=== PATIENT | female | born 1940 | race Caucasian/White ===

== ENCOUNTER → 2016-08-10 | Outpatient (CLI) | payer OTHER ==
[~2016-08-10] MED LIST: CALCIUM + D600 M1 PO; DMD20 PO; FSMUNK; NXM/40 PO
[2016-08-10 12:23] LABS: BASO % 0.5 %; BASO ABS # 0.03 K/uL (0-0.2); COMPLETE YES; EOS % 1.6 %; IG% 0.3 %; LYMPH % 22.8 %; LYMPH ABS # 1.39 K/uL (1.2-3.4); MEAN CELL VOLUME 109.3 fL (80-100); MEAN CORPUSCULAR HEMOGLOBIN 37.6 pg (25-34); MEAN CORPUSCULAR HGB CONC 34.4 g/dl (32-36); MEAN PLATELET VOLUME 10.8 fL (7.4-10.4); MONO % 8.5 %; NEUT % 66.3 %; PLATELET COUNT 179 K/uL (130-400); RED BLOOD COUNT 3.75 M/uL (4.2-5.4); WHITE BLOOD COUNT 6.09 K/uL (4.8-10.8)
[2016-08-10 12:50] LABS: ALT/SGPT 16 U/L (12-78); BLOOD UREA NITROGEN 15 mg/dl (7-18); BUN/CREATININE RATIO 13.7 (10-20); CALCIUM 9.1 mg/dl (8.5-10.1); CARBON DIOXIDE 26 mmol/L (21-32); CHLORIDE 104 mmol/L (98-107); GLUCOSE 103 mg/dl (70-99); POTASSIUM 4.3 mmol/L (3.5-5.1); SODIUM 140 mmol/L (136-145)
[2016-08-10 12:52] LABS: ALB/GLOB RATIO 1.1 (0.9-2); ALKALINE PHOSPHATASE 77 U/L (45-117); AST/SGOT 21 U/L (15-37)
[2016-08-10 12:54] LABS: ESTIMATED AVERAGE GLUCOSE 103 mg/dl; HA1C FLAG Normal (Normal)
--- NOTE | 2016-08-16 13:37 | CODING QUERY MEDICAL NECESSITY ---
SUPPORTING DIAGNOSIS NEEDED A supporting diagnosis is required for the test/procedure performed on this patient in order for us to be reimbursed by the patient's insurance. Please provide a supporting diagnosis for the following test/procedure listed below next to the test name along with your signature. *If there is no additional diagnosis for this patient that would support the following test/procedure please document that below next to the test/procedure. Test(s)/Procedure(s) that require a supporting diagnosis: * VITAMIN B-12 LEVEL DIAGNOSIS: * DOS: 08/10/16 Provider Signature: Date: Thank you Neida Lucero Health Information Management Once completed, please kindly fax back to [phone] For questions please call [phone]
== END | disposition home or self-care (01) ==
LOC: C.LABBFT 08:48
PROVIDERS: ATTEND Internal Medicine
DX: D64.9 Anemia, unspecified (principal); R73.01 Impaired fasting glucose

== ENCOUNTER → 2017-06-09 | Outpatient (CLI) | payer OTHER ==
[2017-06-09 17:34] LABS: HEMATOCRIT 39.9 % (37-47); MEAN CELL VOLUME 109.6 fL (80-100); MEAN CORPUSCULAR HEMOGLOBIN 36.8 pg (25-34); MEAN CORPUSCULAR HGB CONC 33.6 g/dl (32-36); MEAN PLATELET VOLUME 10.8 fL (7.4-10.4); PLATELET COUNT 162 K/uL (130-400); RED BLOOD COUNT 3.64 M/uL (4.2-5.4); WHITE BLOOD COUNT 6.71 K/uL (4.8-10.8)
[2017-06-09 17:39] LABS: ALT/SGPT 11 U/L (12-78); AST/SGOT 28 U/L (15-37); BLOOD UREA NITROGEN 14 mg/dl (7-18); BUN/CREATININE RATIO 13.3 (10-20); CALCIUM 8.7 mg/dl (8.5-10.1); CARBON DIOXIDE 25 mmol/L (21-32); CHLORIDE 101 mmol/L (98-107); CHOLESTEROL 204 mg/dl (0-200); CREATININE 1.05 mg/dl (0.60-1.20); GLUCOSE 104 mg/dl (70-99); SODIUM 135 mmol/L (136-145); TRIGLYCERIDES 85 mg/dl (0-150); VERY LOW DENSITY LIPOPROT CALC 17 mg/dl
[2017-06-09 17:41] LABS: ALB/GLOB RATIO 0.9 (0.9-2); ALKALINE PHOSPHATASE 87 U/L (45-117); CHOLESTEROL/HDL RATIO 1.9; HDL CHOLESTEROL 109 mg/dl; LDL CHOLESTEROL CALCULATED 78 mg/dl
[2017-06-10 06:23] LABS: ESTIMATED AVERAGE GLUCOSE 100 mg/dl; HA1C FLAG Normal (Normal)
== END | disposition home or self-care (01) ==
LOC: C.LABBFT 11:30
PROVIDERS: ATTEND Internal Medicine
DX: Z00.00 Encounter for general adult medical examination without abnormal findings (principal); R73.01 Impaired fasting glucose; E78.00 Pure hypercholesterolemia, unspecified

== ENCOUNTER → 2017-08-18 | Outpatient (CLI) | payer OTHER | END | disposition home or self-care (01) | LOC: C.PATHSPEC 17:06 | PROVIDERS: ATTEND Physician Assistant | DX: L57.0 Actinic keratosis (principal); B07.9 Viral wart, unspecified ==

== ENCOUNTER → 2017-10-20 | Outpatient (CLI) | payer OTHER | END | disposition home or self-care (01) | LOC: C.LABSPEC 16:41 | PROVIDERS: ATTEND Physician Assistant | DX: J34.89 Other specified disorders of nose and nasal sinuses (principal) ==

== ENCOUNTER 2019-01-16 08:39 | Inpatient (IN) ==
--- NOTE | 2019-01-16 09:04 | XRay Report ---
XR chest 1V portable CLINICAL HISTORY: Atypical chest pain COMPARISON STUDY: No previous studies for comparison. FINDINGS: The heart is borderline enlarged. There is a retrocardiac opacity possibly representing a h iatal hernia. There is no lobar consolidation. There is mild blunting of the left lateral costophreni c angle. There is subtle increased density within the left midlung zone. It is unclear whether this i s parenchymal or pleural. There is no failure.[ IMPRESSION: 1. Blunting of the left lateral costophrenic angle, possibly secondary to a small effusion 2. Increased density within the lateral aspect of the left midlung zone. It is unclear whether this i s parenchymal or pleural 3. Retrocardiac opacity possibly representing a hiatal hernia Electronically signed by: Flavio Stark M.D. 01/16/2019 9:03 AM
[2019-01-16] MEDS ORDERED: FAMOTIDINE 20MG/5ML IV PUSH IV STA (09:22)
[2019-01-16 09:36] LABS: Basophils # (auto) 0.03 K/uL (0-0.2); Basophils % (auto) 0.4 %; Eosinophils # (auto) 0.05 K/uL (0-0.5); Eosinophils % (auto) 0.7 %; Hematocrit (blood only) 25.5 % (37-47); Hemoglobin 7.7 g/dL (12.0-16.0); Immature Granulocytes # (auto) 0.01 K/uL (0.00-0.02); Immature Granulocytes % (auto) 0.1 %; Lymphocytes # (auto) 0.83 K/uL (1.2-3.4); Lymphocytes % (auto) 11.4 %; Mean Corpuscular Hgb Conc 30.2 g/dL (32-36); Mean Corpuscular Volume 94.8 fL (80-100); Mean Platelet Volume 10.1 fL (7.4-10.4); Monocytes # (auto) 0.73 K/uL (0.11-0.59); Neutrophils # (auto) 5.62 K/uL (1.4-6.5); Neutrophils % (auto) 77.4 %; Platelet Count 194 K/uL (130-400); RDW Coefficient of Variation 15.8 % (11.5-14.5); RDW Standard Deviation 54.8 fL (36.4-46.3); Red Blood Count 2.69 M/uL (4.2-5.4); White Blood Count 7.27 K/uL (4.8-10.8)
[2019-01-16 09:45] LABS: Prothrombin Time 10.3 Seconds (9.0-12.0)
[2019-01-16 09:54] LABS: Alanine Aminotransferase < 6 U/L (12-78); Albumin Level 3.5 gm/dl (3.4-5.0); Aspartate Aminotransferase 16 U/L (15-37); BUN Creatinine Ratio 13.7 (10-20); Bilirubin Direct 0.1 mg/dl (0-0.2); Blood Urea Nitrogen 22 mg/dl (7-18); Carbon Dioxide 23 mmol/L (21-32); Chloride 106 mmol/L (98-107); Est GFR (African American) 35.4; Est GFR (Non-African American) 30.5; Glucose 110 mg/dl (70-99); Magnesium 2.1 mg/dl (1.8-2.4); Sodium 137 mmol/L (136-145)
[2019-01-16 10:03] LABS: Albumin Globulin Ratio 0.9 (0.9-2); Alkaline Phosphatase 123 U/L (45-117); Bilirubin,Total 0.6 mg/dl (0.2-1); NT Pro B Type Natriuretic Pept 922 pg/ml (0-1800); Phosphorus 3.1 mg/dl (2.5-4.9); Total Protein 7.5 gm/dl (6.4-8.2); Troponin I < 0.015 ng/ml (0-0.045)
[2019-01-16] MEDS ORDERED: OPTIRAY 320 125ml IV PRN (10:14)
--- NOTE | 2019-01-16 10:22 | CT Scan Report ---
CT angio chest PE protocol CT DOSE: 344.96 mGy.cm HISTORY: Chest pain PE TECHNIQUE: Multiaxial CT images of the chest were performed following the intravenous administration of contrast to evaluate the pulmonary arteries. Maximal intensity projection images were also obtaine d. A dose lowering technique was utilized adhering to the principles of ALARA. COMPARISON STUDY: None. FINDINGS: Minimal atherosclerotic change thoracic aorta. Large fixed hiatal hernia. Moderate debris w ithin the mid to distal esophagus. Small left pleural effusion. Minimal dependent basilar atelectasis . The pulmonary vasculature and enhances appropriately. There are no significant filling defects. IMPRESSION: 1. No evidence of pulmonary embolus. 2. Large fixed hiatal hernia. 3. Small left pleural effusion. 4. Moderate debris within the mid to distal esophagus. The above report was generated using voice recognition software. It may contain grammatical, syntax or spelling errors. Electronically signed by: Tristen Veloz M.D. 01/16/2019 10:21 AM
--- NOTE | 2019-01-16 10:26 | CT Scan Report ---
CT angio neck with con CLINICAL HISTORY: Severe neck and chest pain. COMPARISON STUDY: No previous studies for comparison. TECHNIQUE: CT angiography was performed from the aortic arch to the skull base. MIP imaging was perfo rmed. The patient was scanned in a dynamic helical fashion during intravenous administration of 120 c c of Optiray 320. A dose lowering technique was utilized adhering to the principles of ALARA. CT DOSE: Technique: CT angiogram of the carotid and vertebral arteries was obtained using intravenous contrast and 3-D reconstruction. NASCET criteria was utilized. Findings: The visualized portions lung apices reveal pulmonary emphysema. The right carotid revealed no evidence of aneurysm and no evidence of dissection. There is no evidenc e of hemodynamic significant stenosis.. There is calcific atheromatous plaque at the origin of the ri ght internal carotid artery. This results in a 35% diameter narrowing. The left carotid revealed no evidence of hemodynamic significant stenosis. There is no evidence of an eurysm. There is no evidence of dissection. There is no evidence of hemodynamically significant vertebral stenosis. There is no evidence of verte bral dissection. There are moderate multilevel degenerative changes within the cervical spine. IMPRESSION: 1. Atheromatous changes at the origin of the right internal carotid artery, but no evidence of hemody namic significant carotid stenosis. No evidence of left internal carotid artery stenosis. 2. No evidence of vertebral artery stenosis or dissection 3. Moderate multilevel degenerative changes within the cervical spine. Electronically signed by: Flavio Stark M.D. 01/16/2019 10:24 AM
[2019-01-16 10:32] LABS: RBC Morphology Unremarkable
[2019-01-16 11:41] LABS: Appearance Urine Clear (Clear); Bilirubin Urine Negative (Negative); Blood Urine Negative (Negative); Color Urine Yellow; Glucose Urine UA Negative (Negative); Ketones Urine Negative (Negative); Leukocyte Esterase Urine Negative (Negative); Nitrite Urine Negative (Negative); Protein Urine Negative (Negative); Specific Gravity Urine 1.022 (1.000-1.030); Urobilinogen Urine Negative (Negative); pH Urine 6.5 (4.5-7.5)
--- NOTE | 2019-01-16 14:27 | History & Physical Report ---
Date of Service January 16, 2019 Assessment & Plan (1) Anemia: Normochromic/normocytic anemia. Stool is brown. Hemoccult +. Suspect gastric/stomach irritation from Aleve use + EtOH. Patient does not want to proceed with further workup and refuses to have [place] or EGD performed at this time. She is hemodynamically stable. No symptoms of anemia -Continue to monitor CBC. Transfuse if active bleeding, Hg < 7 or symptoms of anemia develop -Will STOP Aleve and instruct patient to avoid all NSAIDS -Protonix 40mg po BID -Sucralfate TID Present on Admission?: Yes (2) Neck pain: Suspect cervicalgia from arthritis vs musculoskeletal pain from PD. Patient was seen by Ortho and PT/OT was recommended -PT/OT evaluation -Strongly encourage continued exercise for strengthening of neck muscles -Tylenol 1gm PO TID -Voltaren gel PRN -Would avoid further use of NSAIDS, would try to avoid narcotics due to age Present on Admission?: Yes (3) Parkinson disease: Chronic. Symptoms well controlled -Patient to continue Carbidoba/Levodopa at home dose History of Present Illness Chief Complaint: pain in neck Primary Care Provider: Marquis Bullock MD Phoebe Bernal is a pleasant 78yo C female with history of arthritis, early PD on Carbidopa/Levodopa presenting with neck pain. She states that her symptoms began approximately 4 months ago and have been slowly progressing since. She describes pain in the back of her neck which radiates to the front of her head and bandlike across her chest and into her back which occurs only with looking down. Pain is 8/10 in severity. Resolves with rest. She denies numbness/tingling/weakness or loss of function in her hands. Denies dizziness/syncope/falls/visual changes. She was evaluated by She states her head also "gets stuck" in the downward position sometimes due to pain. Pain may also come depending on her sleeping position. Patient reports seeing an Ortho/Spine surgeon last week and had MRI performed but has not yet received the results of that study. She was referred to physical therapy. She is to followup with Ortho on 02/08/19 Patient presents today at the behest of her sister who is concerned about her symptoms. ER workup reveals H/H of 7.7 and 25.5 which is down from 13.1 and 39.1, respectively in August 2018. She states that she has been taking Aleve fairly regularly over the last 4 months. She was using 1 tablet daily initially but has recently been taking it BID. She has improvement in pain with Aleve. She denies CP/SOB/lightheadedness or dizziness. She denies melena/hematochezia/hematemesis/CGE. She has some mild epigastric tenderness. Stool + for FOBT in the ER. No prior EGD/[place]. Patient does not wish to pursue additional workup. ER Course: Pepcid Allergies Allergy/AdvReac Type Severity Reaction Status Date / Time No Known Allergies Allergy Mild Unverified 01/16/19 09:16 Home Medications Home Medications Medication Instructions Recorded Confirmed Type carbidopa-levodopa 1 tab PO UD 01/16/19 01/16/19 History naproxen sodium [Aleve] 220 mg PO Q12H PRN 01/16/19 01/16/19 History Past Med/Surg History Medical History Broken clavicle (Resolved) Arthritis Parkinson disease Surgical History History of cholecystectomy Family History Other Coronary heart disease Social History Preferred Language: Finnish Communication Ability: Effective Tie Puller Required: No Beliefs That Will Affect Care: None Current Living Situation: Alone Other Information That Helps Us Care for You: No Feels Safe at Home: Yes Safety Concerns: Feels Safe At This Time Smoking Status: Current every day smoker Tobacco Type: cigarettes Do You Dip or Chew Tobacco: No Second Hand Exposure: No Tobacco Cessation Education Requested by Patient: No Hx Alcohol Use: Yes Alcohol type: wine Hx Substance Use: No Review of Systems Review of Systems: All systems reviewed & are unremarkable except as noted in HPI & below Physical Exam Physical Exam: General: patient resting comfortably, NAD, non-toxic in appearance, AA&O x 4 Skin: warm, dry, intact, no rashes or lesions HEENT: NC/AT, PERRL, EOMI, anicteric sclera, conjunctiva without injection, external ear normal to inspection and nontender, nares patent, moist mucus membranes, dentures in place, no oropharyngeal lesions, neck supple, trachea midline, no LAD, no thyromegaly, no JVD Heart: +S1/S2, regular, no m/r/g Lungs: equal air entry bilaterally, no rales/rhonchi/wheezes Abd: +BS, soft, ND, mild epigastric discomfort, no masses/organomegaly/ascites Ext: warm, 2+ pulses in UE/LE bilaterally, no clubbing/cyanosis or edema Neuro: nonfocal, patient AA&O x 4, speech intact, no facial droop, moving all extremities on command with equal strength 5/5 Results & Data Vital Signs (Past 12 Hours) Vital Signs Temp Pulse Pulse Resp BP BP Pulse Ox 01/16/19 13:09 68 16 202/76 H 97 01/16/19 10:40 71 16 174/89 H 98 01/16/19 08:55 100 01/16/19 08:43 36.4 C L 78 18 173/76 H 100 Laboratory Results Lab Results 01/16/19 01/16/19 01/16/19 Range/Units 09:20 09:20 09:20 WBC 7.27 (4.8-10.8) K/uL RBC 2.69 L (4.2-5.4) M/uL Hgb 7.7 L (12.0-16.0) g/dL Hct 25.5 L (37-47) % MCV 94.8 (80-100) fL MCH 28.6 (25-34) pg MCHC 30.2 L (32-36) g/dL RDW Std Deviation 54.8 H (36.4-46.3) fL RDW Coeff of Sancho 15.8 H (11.5-14.5) % Plt Count 194 (130-400) K/uL MPV 10.1 (7.4-10.4) fL Immature Gran % (Auto) 0.1 % Neut % (Auto) 77.4 % Lymph % (Auto) 11.4 % [place] % (Auto) 10.0 % Eos % (Auto) 0.7 % Baso % (Auto) 0.4 % Immature Gran # (Auto) 0.01 (0.00-0.02) K/uL Neut # (Auto) 5.62 (1.4-6.5) K/uL Lymph # (Auto) 0.83 L (1.2-3.4) K/uL [place] # (Auto) 0.73 H (0.11-0.59) K/uL Eos # (Auto) 0.05 (0-0.5) K/uL Baso # (Auto) 0.03 (0-0.2) K/uL RBC Morphology Unremarkable PT 10.3 (9.0-12.0) Seconds INR 1.0 (0.9-1.1) Sodium 137 (136-145) mmol/L Potassium 4.0 (3.5-5.1) mmol/L Chloride 106 (98-107) mmol/L Carbon Dioxide 23 (21-32) mmol/L Anion Gap 8.0 (3-11) BUN 22 H (7-18) mg/dl Creatinine 1.60 H (0.6-1.2) mg/dl Est Cr Clr Drug Dosing Not Reportable Est GFR ( Amer) 35.4 Est GFR (Non-Af Amer) 30.5 BUN/Creatinine Ratio 13.7 (10-20) Glucose 110 H (70-99) mg/dl Calcium 9.0 (8.5-10.1) mg/dl Phosphorus 3.1 (2.5-4.9) mg/dl Magnesium 2.1 (1.8-2.4) mg/dl Total Bilirubin 0.6 (0.2-1) mg/dl Direct Bilirubin 0.1 (0-0.2) mg/dl AST 16 (15-37) U/L ALT < 6 L (12-78) U/L Alkaline Phosphatase 123 H (45-117) U/L Troponin I < 0.015 (0-0.045) ng/ml NT-Pro-B Natriuret Pep 922 (0-1800) pg/ml Total Protein 7.5 (6.4-8.2) gm/dl Albumin 3.5 (3.4-5.0) gm/dl Globulin 4.0 (2.5-4.0) gm/dl Albumin/Globulin Ratio 0.9 (0.9-2) Lipase 78 (73-393) U/L TSH 1.570 (0.300-4.500) uIu/ml Urine Color Urine Appearance (Clear) Urine pH (4.5-7.5) Ur Specific [place] (1.000-1.030) Urine Protein (Negative) Urine Glucose (UA) (Negative) Urine Ketones (Negative) Urine Blood (Negative) Urine Nitrite (Negative) Urine Bilirubin (Negative) Urine Urobilinogen (Negative) Ur Leukocyte Esterase (Negative) 01/16/19 Range/Units 11:25 WBC (4.8-10.8) K/uL RBC (4.2-5.4) M/uL Hgb (12.0-16.0) g/dL Hct (37-47) % MCV (80-100) fL MCH (25-34) pg MCHC (32-36) g/dL RDW Std Deviation (36.4-46.3) fL RDW Coeff of Sancho (11.5-14.5) % Plt Count (130-400) K/uL MPV (7.4-10.4) fL Immature Gran % (Auto) % Neut % (Auto) % Lymph % (Auto) % [place] % (Auto) % Eos % (Auto) % Baso % (Auto) % Immature Gran # (Auto) (0.00-0.02) K/uL Neut # (Auto) (1.4-6.5) K/uL Lymph # (Auto) (1.2-3.4) K/uL [place] # (Auto) (0.11-0.59) K/uL Eos # (Auto) (0-0.5) K/uL Baso # (Auto) (0-0.2) K/uL RBC Morphology PT (9.0-12.0) Seconds INR (0.9-1.1) Sodium (136-145) mmol/L Potassium (3.5-5.1) mmol/L Chloride (98-107) mmol/L Carbon Dioxide (21-32) mmol/L Anion Gap (3-11) BUN (7-18) mg/dl Creatinine (0.6-1.2) mg/dl Est Cr Clr Drug Dosing Est GFR ( Amer) Est GFR (Non-Af Amer) BUN/Creatinine Ratio (10-20) Glucose (70-99) mg/dl Calcium (8.5-10.1) mg/dl Phosphorus (2.5-4.9) mg/dl Magnesium (1.8-2.4) mg/dl Total Bilirubin (0.2-1) mg/dl Direct Bilirubin (0-0.2) mg/dl AST (15-37) U/L ALT (12-78) U/L Alkaline Phosphatase (45-117) U/L Troponin I (0-0.045) ng/ml NT-Pro-B Natriuret Pep (0-1800) pg/ml Total Protein (6.4-8.2) gm/dl Albumin (3.4-5.0) gm/dl Globulin (2.5-4.0) gm/dl Albumin/Globulin Ratio (0.9-2) Lipase (73-393) U/L TSH (0.300-4.500) uIu/ml Urine Color Yellow Urine Appearance Clear (Clear) Urine pH 6.5 (4.5-7.5) Ur Specific [place] 1.022 (1.000-1.030) Urine Protein Negative (Negative) Urine Glucose (UA) Negative (Negative) Urine Ketones Negative (Negative) Urine Blood Negative (Negative) Urine Nitrite Negative (Negative) Urine Bilirubin Negative (Negative) Urine Urobilinogen Negative (Negative) Ur Leukocyte Esterase Negative (Negative) Diagnostic Findings CT angio neck with con CLINICAL HISTORY: Severe neck and chest pain. COMPARISON STUDY: No previous studies for comparison. TECHNIQUE: CT angiography was performed from the aortic arch to the skull base. MIP imaging was performed. The patient was scanned in a dynamic helical fashion during intravenous administration of 120 cc of Optiray 320. A dose lowering technique was utilized adhering to the principles of ALARA. CT DOSE: Technique: CT angiogram of the carotid and vertebral arteries was obtained using intravenous contrast and 3-D reconstruction. NASCET criteria was utilized. Findings: The visualized portions lung apices reveal pulmonary emphysema. The right carotid revealed no evidence of aneurysm and no evidence of dissection. There is no evidence of hemodynamic significant stenosis.. There is calcific atheromatous plaque at the origin of the right internal carotid artery. This results in a 35% diameter narrowing. The left carotid revealed no evidence of hemodynamic significant stenosis. There is no evidence of aneurysm. There is no evidence of dissection. There is no evidence of hemodynamically significant vertebral stenosis. There is no evidence of vertebral dissection. There are moderate multilevel degenerative changes within the cervical spine. IMPRESSION: 1. Atheromatous changes at the origin of the right internal carotid artery, but no evidence of hemodynamic significant carotid stenosis. No evidence of left internal carotid artery stenosis. 2. No evidence of vertebral artery stenosis or dissection 3. Moderate multilevel degenerative changes within the cervical spine. Electronically signed by: Flavio Stark M.D. 01/16/2019 10:24 AM Dictated: 01/16/19 [id number] Transcribed: 01/16/191016 CT angio chest PE protocol CT DOSE: 344.96 mGy.cm HISTORY: Chest pain PE TECHNIQUE: Multiaxial CT images of the chest were performed following the intravenous administration of contrast to evaluate the pulmonary arteries. Maximal intensity projection images were also obtained. A dose lowering technique was utilized adhering to the principles of ALARA. COMPARISON STUDY: None. FINDINGS: Minimal atherosclerotic change thoracic aorta. Large fixed hiatal hernia. Moderate debris within the mid to distal esophagus. Small left pleural effusion. Minimal dependent basilar atelectasis. The pulmonary vasculature and enhances appropriately. There are no significant filling defects. IMPRESSION: 1. No evidence of pulmonary embolus. 2. Large fixed hiatal hernia. 3. Small left pleural effusion. 4. Moderate debris within the mid to distal esophagus. The above report was generated using voice recognition software. It may contain grammatical, syntax or spelling errors. Electronically signed by: Tristen Veloz M.D. 01/16/2019 10:21 AM Dictated: 01/16/191016 Transcribed: 01/16/191016 XR chest 1V portable CLINICAL HISTORY: Atypical chest pain COMPARISON STUDY: No previous studies for comparison. FINDINGS: The heart is borderline enlarged. There is a retrocardiac opacity possibly representing a hiatal hernia. There is no lobar consolidation. There is mild blunting of the left lateral costophrenic angle. There is subtle increased density within the left midlung zone. It is unclear whether this is parenchymal or pleural. There is no failure.[ IMPRESSION: 1. Blunting of the left lateral costophrenic angle, possibly secondary to a small effusion 2. Increased density within the lateral aspect of the left midlung zone. It is unclear whether this is parenchymal or pleural 3. Retrocardiac opacity possibly representing a hiatal hernia Electronically signed by: Flavio Stark M.D. 01/16/2019 9:03 AM Dictated: 01/16/19901 Transcribed: 01/16/19901 ECG Additional Comments: THe study shows NSR at 65, normal axis, normal intervals, no acute ischemic changes. No prior studies Code Status & VTE Plan Code Status Full - patient is listed in her outpatient record as a DNR but states that for the purpose of this hospital stay she would like to be Full Code PG Care Time/CCT Total # of Minutes Spent Total Time Spent with Patient: Total time spent is greater than 50% in coordination of care (as documented) at patient's floor/unit and/or counseling patient: (1) Anemia Anemia type: unspecified type Qualified Code(s): D64.9 - Anemia, unspecified
[2019-01-16] MEDS ORDERED: DOCUSATE SODIUM 100 MG CAP PO PRN (16:34)
[2019-01-16] MEDS: SUCRALFATE 1 GM/10 ML UDC PO SCH ×2 (17:13→20:53)
[2019-01-16] MEDS ORDERED: DICLOFENAC SOD 1% GEL 100 GM TUBE EXT PRN (17:38)
[2019-01-16] MEDS ORDERED: DICLOFENAC SOD 1% GEL 100 GM TUBE EXT SCH (18:00)
[2019-01-16] MEDS: CARBIDOPA/LEVODOPA 25/100MG TAB PO SCH ×2 (18:21→20:54)
--- NOTE | 2019-01-16 19:54 | Emergency Department Note ---
Entered by Gladys Reis acting as a scribe for History of Present Illness General Chief complaint: Neck Injury/Pain Stated complaint: PAIN IN BACK ON NECK INTO HEAD, BACK AND CHEST CHANDRA Time Seen by Provider: 01/16/19 08:48 Source: patient History of Present Illness Provider complaint: neck pain Onset (ago): month(s) 4 Location: neck Radiation: other (head, chest and back) Pain Consistency: + intermittent Maximum Pain Intensity: 10 Exacerbated By: + other (looking downwards) Associated symptoms: + shortness of breath and + other (pain when taking deep breaths) The patient is a 78 year old female who presents to the ED with complaints of intermittent neck pain that began 4 months ago. The patient states that the pain occurs when she looks downwards. The patient notes that the pain starts in her neck and then radiates into her head, chest and back. The patient notes that thi s pain lingers for about an hour before going away completely. The patient notes that she experiences shortness of breath and pain when taking deep breaths. Home Medications Home Medications Medication Instructions Recorded Confirmed Type carbidopa-levodopa 1 tab PO UD 01/16/19 01/16/19 History naproxen sodium [Aleve] 220 mg PO Q12H PRN 01/16/19 01/16/19 History Allergies Allergy/AdvReac Type Severity Reaction Status Date / Time No Known Allergies Allergy Mild Unverified 01/16/19 09:16 Past Med/Surg History Medical History Broken clavicle (Resolved) Arthritis Parkinson disease Surgical History History of cholecystectomy Family History Other Coronary heart disease Social History Preferred Language: Setswana Communication Ability: Effective Loin Puller Required: No Beliefs That Will Affect Care: None Current Living Situation: Alone Other Information That Helps Us Care for You: No Feels Safe at Home: Yes Safety Concerns: Feels Safe At This Time Smoking Status: Current every day smoker Tobacco Type: cigarettes Do You Dip or Chew Tobacco: No Second Hand Exposure: No Tobacco Cessation Education Requested by Patient: No Hx Alcohol Use: Yes Alcohol type: wine Hx Substance Use: No Review of Systems See HPI for pertinent positives & negatives. and A total of 10 systems reviewed and were otherwise negative Physical Exam Vital Signs Vital Signs - 24 hr 01/16/19 08:43 01/16/19 08:55 01/16/19 10:40 Temperature 36.4 C L Temperature Source Oral Sepsis Recent Fever Within 48 Hours No Sepsis Action Taken by Nursing No Action Required Pulse Rate 78 Pulse Rate [Apical] 71 Respiratory Rate 18 16 Blood Pressure 173/76 H Blood Pressure [Left Arm] 174/89 H Blood Pressure Mean 108 Blood Pressure Mean [Left Arm] 117 Pulse Oximetry 100 100 98 Oxygen Delivery Method Room Air Room Air Room Air 01/16/19 13:09 Temperature Temperature Source Sepsis Recent Fever Within 48 Hours Sepsis Action Taken by Nursing Pulse Rate Pulse Rate [Apical] 68 Respiratory Rate 16 Blood Pressure Blood Pressure [Left Arm] 202/76 H Blood Pressure Mean Blood Pressure Mean [Left Arm] 118 Pulse Oximetry 97 Oxygen Delivery Method Room Air GENERAL: Awake, alert, fatigued-appearing, in no distress HENT: Normocephalic, atraumatic. Oropharynx with dry mucous membranes and otherwise unremarkable. EYES: Normal conjunctiva. Sclera non-icteric. EOMI. No nystamgus. PEARRL. NECK: Supple. No nuchal rigidity. FROM. No JVD. RESPIRATORY: Clear to auscultation bilaterally. CARDIAC: Regular rate, normal rhythm. Extremities warm and well perfused. Pulses equal. ABDOMEN: Soft, non-distended. No tenderness to palpation. No rebound or guarding. No masses. RECTAL: Deferred. MUSCULOSKELETAL: Chest examination reveals no tenderness. The back is symmetrical on inspection without obvious abnormality. There is no CVA tenderness to palpation. No joint edema. LOWER EXTREMITIES: Calves are equal size bilaterally and non-tender. No edema. No discoloration. NEURO: Normal sensorium. No sensory or motor deficits noted. SKIN: No rash or jaundice noted. Course 09: Past medical records reviewed. The patient was evaluated in room B3. A complete history and physical exam was performed. 1154: I reevaluated the patient and they are resting comfortably. I updated her on the test results. 1420: I discussed the patient's case with Dr. Solaon- [facility] Hospitalist. She will evaluate the patient for further management. Consultations Consultation #1: I discussed the patient's case with Dr. Solano- [facility] Hospitalist. She will evaluate the patient for further management. Time: 14:20 Administered Medications Acetaminophen (Tylenol) 1,000 mg PO TID RONNY Stop: 02/15/19 20:59 Last Admin: 01/16/19 20:53 Dose: Not Given Documented by: [id number] Carbidopa/Levodopa (Sinemet 25/100 Mg) 1 tab PO [id number] RONNY Stop: 02/15/19 18:59 Last Admin: 01/16/19 20:54 Dose: 1 tab Documented by: [id number] Admin: 01/16/19 18:21 Dose: 1 tab Documented by: [id number] Diclofenac Sodium (Voltaren 1% Top) 1 appln EXT Q8H PRN PRN Reason: Pain Stop: 02/15/19 17:59 Last Admin: 01/16/19 18:20 Dose: 1 appln Documented by: [id number] Ioversol (Optiray 320 125ml) 120 ml IV ONCE PRN PRN Reason: Interaction Checking Stop: 01/20/19 10:13 Last Admin: 01/16/19 10:14 Dose: 120 ml Documented by: [id number] Pantoprazole Sodium (Protonix) 40 mg PO BID RONNY Stop: 02/15/19 20:59 Last Admin: 01/16/19 20:53 Dose: 40 mg Documented by: [id number] Sucralfate (Carafate) 1 gm PO ACHS RONNY Stop: 02/15/19 16:59 Last Admin: 01/16/19 20:53 Dose: 1 gm Documented by: [id number] Admin: 01/16/19 17:13 Dose: 1 gm Documented by: [id number] Discontinued Medications Diclofenac Sodium (Voltaren 1% Top) 1 appln EXT Q8H RONNY Stop: 02/15/19 17:59 Last Admin: 01/16/19 17:15 Dose: Not Given Documented by: [id number] Famotidine (Pepcid 20mg Iv Push) 20 mg IV ONE STA Stop: 01/16/19 09:23 Last Admin: 01/16/19 09:29 Dose: 20 mg Documented by: [id number] Medical Decision Making Differential Diagnosis Differential diagnosis: Etiologies such as shingles, musculoskeletal pain, pericarditis, myocarditis, cardiac ischemia, pericardial tamponade, pneumonia, pneumothorax, pleural effusion, hemothorax, pleurisy, aortic pathology, pulmonary embolism, intra- abdominal process, as well as others were considered. Medical Records Attestation: I reviewed the patient's medical records. Home Medications Current Medication List: was personally reviewed by me Laboratory Data Attestation: I reviewed the patient's lab results. Result diagrams: 01/16/19 09:20 01/16/19 09:20 Lab Results 01/16/19 01/16/19 01/16/19 Range/Units 09:20 09:20 09:20 WBC 7.27 (4.8-10.8) K/uL RBC 2.69 L (4.2-5.4) M/uL Hgb 7.7 L (12.0-16.0) g/dL Hct 25.5 L (37-47) % MCV 94.8 (80-100) fL MCH 28.6 (25-34) pg MCHC 30.2 L (32-36) g/dL RDW Std Deviation 54.8 H (36.4-46.3) fL RDW Coeff of Sancho 15.8 H (11.5-14.5) % Plt Count 194 (130-400) K/uL MPV 10.1 (7.4-10.4) fL Immature Gran % (Auto) 0.1 % Neut % (Auto) 77.4 % Lymph % (Auto) 11.4 % [place] % (Auto) 10.0 % Eos % (Auto) 0.7 % Baso % (Auto) 0.4 % Immature Gran # (Auto) 0.01 (0.00-0.02) K/uL Neut # (Auto) 5.62 (1.4-6.5) K/uL Lymph # (Auto) 0.83 L (1.2-3.4) K/uL [place] # (Auto) 0.73 H (0.11-0.59) K/uL Eos # (Auto) 0.05 (0-0.5) K/uL Baso # (Auto) 0.03 (0-0.2) K/uL RBC Morphology Unremarkable PT 10.3 (9.0-12.0) Seconds INR 1.0 (0.9-1.1) Sodium 137 (136-145) mmol/L Potassium 4.0 (3.5-5.1) mmol/L Chloride 106 (98-107) mmol/L Carbon Dioxide 23 (21-32) mmol/L Anion Gap 8.0 (3-11) BUN 22 H (7-18) mg/dl Creatinine 1.60 H (0.6-1.2) mg/dl Est Cr Clr Drug Dosing Not Reportable Est GFR ( Amer) 35.4 Est GFR (Non-Af Amer) 30.5 BUN/Creatinine Ratio 13.7 (10-20) Glucose 110 H (70-99) mg/dl Calcium 9.0 (8.5-10.1) mg/dl Phosphorus 3.1 (2.5-4.9) mg/dl Magnesium 2.1 (1.8-2.4) mg/dl Total Bilirubin 0.6 (0.2-1) mg/dl Direct Bilirubin 0.1 (0-0.2) mg/dl AST 16 (15-37) U/L ALT < 6 L (12-78) U/L Alkaline Phosphatase 123 H (45-117) U/L Troponin I < 0.015 (0-0.045) ng/ml NT-Pro-B Natriuret Pep 922 (0-1800) pg/ml Total Protein 7.5 (6.4-8.2) gm/dl Albumin 3.5 (3.4-5.0) gm/dl Globulin 4.0 (2.5-4.0) gm/dl Albumin/Globulin Ratio 0.9 (0.9-2) Lipase 78 (73-393) U/L TSH 1.570 (0.300-4.500) uIu/ml Urine Color Urine Appearance (Clear) Urine pH (4.5-7.5) Ur Specific [place] (1.000-1.030) Urine Protein (Negative) Urine Glucose (UA) (Negative) Urine Ketones (Negative) Urine Blood (Negative) Urine Nitrite (Negative) Urine Bilirubin (Negative) Urine Urobilinogen (Negative) Ur Leukocyte Esterase (Negative) 01/16/19 Range/Units 11:25 WBC (4.8-10.8) K/uL RBC (4.2-5.4) M/uL Hgb (12.0-16.0) g/dL Hct (37-47) % MCV (80-100) fL MCH (25-34) pg MCHC (32-36) g/dL RDW Std Deviation (36.4-46.3) fL RDW Coeff of Sancho (11.5-14.5) % Plt Count (130-400) K/uL MPV (7.4-10.4) fL Immature Gran % (Auto) % Neut % (Auto) % Lymph % (Auto) % [place] % (Auto) % Eos % (Auto) % Baso % (Auto) % Immature Gran # (Auto) (0.00-0.02) K/uL Neut # (Auto) (1.4-6.5) K/uL Lymph # (Auto) (1.2-3.4) K/uL [place] # (Auto) (0.11-0.59) K/uL Eos # (Auto) (0-0.5) K/uL Baso # (Auto) (0-0.2) K/uL RBC Morphology PT (9.0-12.0) Seconds INR (0.9-1.1) Sodium (136-145) mmol/L Potassium (3.5-5.1) mmol/L Chloride (98-107) mmol/L Carbon Dioxide (21-32) mmol/L Anion Gap (3-11) BUN (7-18) mg/dl Creatinine (0.6-1.2) mg/dl Est Cr Clr Drug Dosing Est GFR ( Amer) Est GFR (Non-Af Amer) BUN/Creatinine Ratio (10-20) Glucose (70-99) mg/dl Calcium (8.5-10.1) mg/dl Phosphorus (2.5-4.9) mg/dl Magnesium (1.8-2.4) mg/dl Total Bilirubin (0.2-1) mg/dl Direct Bilirubin (0-0.2) mg/dl AST (15-37) U/L ALT (12-78) U/L Alkaline Phosphatase (45-117) U/L Troponin I (0-0.045) ng/ml NT-Pro-B Natriuret Pep (0-1800) pg/ml Total Protein (6.4-8.2) gm/dl Albumin (3.4-5.0) gm/dl Globulin (2.5-4.0) gm/dl Albumin/Globulin Ratio (0.9-2) Lipase (73-393) U/L TSH (0.300-4.500) uIu/ml Urine Color Yellow Urine Appearance Clear (Clear) Urine pH 6.5 (4.5-7.5) Ur Specific [place] 1.022 (1.000-1.030) Urine Protein Negative (Negative) Urine Glucose (UA) Negative (Negative) Urine Ketones Negative (Negative) Urine Blood Negative (Negative) Urine Nitrite Negative (Negative) Urine Bilirubin Negative (Negative) Urine Urobilinogen Negative (Negative) Ur Leukocyte Esterase Negative (Negative) Imaging Data Radiologist's Impression: Radiology results as stated below per my review and th e radiologist's interpretation: XR chest 1V portable CLINICAL HISTORY: Atypical chest pain COMPARISON STUDY: No previous studies for comparison. FINDINGS: The heart is borderline enlarged. There is a retrocardiac opacity possibly representing a hiatal hernia. There is no lobar consolidation. There is mild blunting of the left lateral costophrenic angle. There is subtle increased density within the left midlung zone. It is unclear whether this is parenchymal or pleural. There is no failure.[ IMPRESSION: 1. Blunting of the left lateral costophrenic angle, possibly secondary to a small effusion 2. Increased density within the lateral aspect of the left midlung zone. It is unclear whether this is parenchymal or pleural 3. Retrocardiac opacity possibly representing a hiatal hernia Electronically signed by: Flavio Stark M.D. 01/16/2019 9:[address] angio neck with con CLINICAL HISTORY: Severe neck and chest pain. COMPARISON STUDY: No previous studies for comparison. TECHNIQUE: CT angiography was performed from the aortic arch to the skull base. MIP imaging was performed. The patient was scanned in a dynamic helical fashion during intravenous administration of 120 cc of Optiray 320. A dose lowering technique was utilized adhering to the principles of ALARA. CT DOSE: Technique: CT angiogram of the carotid and vertebral arteries was obtained using intravenous contrast and 3-D reconstruction. NASCET criteria was utilized. Findings: The visualized portions lung apices reveal pulmonary emphysema. The right carotid revealed no evidence of aneurysm and no evidence of dissection. There is no evidence of hemodynamic significant stenosis.. There is calcific atheromatous plaque at the origin of the right internal carotid artery. This results in a 35% diameter narrowing. The left carotid revealed no evidence of hemodynamic significant stenosis. There is no evidence of aneurysm. There is no evidence of dissection. There is no evidence of hemodynamically significant vertebral stenosis. There is no evidence of vertebral dissection. There are moderate multilevel degenerative changes within the cervical spine. IMPRESSION: 1. Atheromatous changes at the origin of the right internal carotid artery, but no evidence of hemodynamic significant carotid stenosis. No evidence of left internal carotid artery stenosis. 2. No evidence of vertebral artery stenosis or dissection 3. Moderate multilevel degenerative changes within the cervical spine. Electronically signed by: Flavio Stark M.D. 01/16/2019 10:[address] angio chest PE protocol CT DOSE: 344.96 mGy.cm HISTORY: Chest pain PE TECHNIQUE: Multiaxial CT images of the chest were performed following the intravenous administration of contrast to evaluate the pulmonary arteries. Maximal intensity projection images were also obtained. A dose lowering technique was utilized adhering to the principles of ALARA. COMPARISON STUDY: None. FINDINGS: Minimal atherosclerotic change thoracic aorta. Large fixed hiatal hernia. Moderate debris within the mid to distal esophagus. Small left pleural effusion. Minimal dependent basilar atelectasis. The pulmonary vasculature and enhances appropriately. There are no significant filling defects. IMPRESSION: 1. No evidence of pulmonary embolus. 2. Large fixed hiatal hernia. 3. Small left pleural effusion. 4. Moderate debris within the mid to distal esophagus. The above report was generated using voice recognition software. It may contain grammatical, syntax or spelling errors. Electronically signed by: Tristen Veloz M.D. 01/16/2019 10:21 AM ECG Data Attestation: I personally reviewed and interpreted this ECG as follows: Indication: chest pain Rate (beats per minute): 65 Rhythm: normal sinus Findings: + other (normal axis); no acute ischemic change Blood Pressure Blood Pressure Findings: Elevated blood pressure Blood Pressure Disposition: further management by hospitalist ESTHER Mejia The patient is a pleasant 78 y/o woman with a pmhx of Parkinson's symptoms on Carbidopa-levodopa who presents to the emergency department with 4 months of intermittent episodes of neck, chest, back pain that occurs when she looks down per HPI. She does not believe that symptoms are related to exertion, rather her neck position. Sx may linger 30-60 minutes. Reports inceased pain with inspiration. On arrival the patient is in NAD, AF, Hypertensive 170/70s and otherwise VSS. Patient appears clinically dry. She is neurological intact. EKG without evidence of acute ischemia. CXR with left pleural effusion and left lung density and likley hiatal hernia. WBC and platelets wnl. H/H 7.7/25.5, which is decrease since patient's from 13.1/39.1 in 08/2018. Patient denies bloody or black stools. Cr. 1.6 slightly increased from prior range. BUN 22 similar to prior range of values. Troponin negative. BNP wnl. UA negative for infection. CTA of neck unremarkable. CTA chest negative for PE. Large hiatal hernia appreciated. Small pleural effusion redomonstrated. Moderate debris within the mid-distal esophagus. Patient reports some improvement after Pepcid. Certainly could have component of GERD or gastritis/esophagitis given CT findings. However, given patient's and sx of CP and SOB, reasaonable to admit for further cardiac evaluation. Heart score 4, moderate risk. Unclear etiology to patient's anemia though patient does report she has had poor nutrition for past several months. Case d/w Dr. Solano, [facility] hospitalist, who will evaluate the patient for admission. Impression & Plan Acute renal insufficiency, Pleural effusion, Substernal chest pain Discharge Plan Visit Data *Final* Discharge Date/Time: 01/16/19 16:00 Chief Complaint: Neck Injury/Pain Stated Complaint: PAIN IN BACK ON NECK INTO HEAD, BACK AND CHEST CHANDRA ED Provider: Rome Perez Discharge Problem: Acute renal insufficiency, Pleural effusion, Substernal chest pain Patient Disposition: Admitted As Inpatient Discharge Instructions Interventions: ED Discharge Assessment Last Done: 01/16/19 16:00 The scribe's documentation has been prepared under my direction and personally reviewed by me in its entirety. I confirm that the note above accurately reflects all work, treatment, procedures, and medical decision making performed by me.
[2019-01-16] MEDS: ACETAMINOPHEN 500 MG TAB PO SCH (20:53)
[2019-01-16] MEDS: PANTOprazole 40 MG TAB PO SCH (20:53)
[2019-01-17 05:34] LABS: Basophils # (auto) 0.02 K/uL (0-0.2); Basophils % (auto) 0.3 %; Eosinophils # (auto) 0.13 K/uL (0-0.5); Eosinophils % (auto) 1.7 %; Hematocrit (blood only) 23.6 % (37-47); Hemoglobin 7.3 g/dL (12.0-16.0); Immature Granulocytes # (auto) 0.01 K/uL (0.00-0.02); Immature Granulocytes % (auto) 0.1 %; Lymphocytes # (auto) 0.67 K/uL (1.2-3.4); Lymphocytes % (auto) 8.5 %; Mean Corpuscular Hgb Conc 30.9 g/dL (32-36); Mean Corpuscular Volume 92.5 fL (80-100); Mean Platelet Volume 10.7 fL (7.4-10.4); Monocytes # (auto) 1.19 K/uL (0.11-0.59); Monocytes % (auto) 15.2 %; Neutrophils # (auto) 5.83 K/uL (1.4-6.5); Neutrophils % (auto) 74.2 %; Platelet Count 177 K/uL (130-400); RDW Coefficient of Variation 15.7 % (11.5-14.5); RDW Standard Deviation 53.7 fL (36.4-46.3); Red Blood Count 2.55 M/uL (4.2-5.4); White Blood Count 7.85 K/uL (4.8-10.8)
[2019-01-17 05:59] LABS: BUN Creatinine Ratio 15.6 (10-20); Calcium 8.2 mg/dl (8.5-10.1); Creatinine Clr Calc Pharmacy 26.4 ml/min; Est GFR (Non-African American) 36.2; Potassium 4.6 mmol/L (3.5-5.1)
[2019-01-17 06:18] LABS: Giant Platelets 1+; Hypochromasia Present
[2019-01-17] MEDS: CARBIDOPA/LEVODOPA 25/100MG TAB PO SCH ×6 (06:28→23:30)
[2019-01-17] MEDS: ACETAMINOPHEN 500 MG TAB PO SCH ×3 (06:31→20:21)
[2019-01-17] MEDS: SUCRALFATE 1 GM/10 ML UDC PO SCH ×4 (08:09→20:21)
[2019-01-17] MEDS: PANTOprazole 40 MG TAB PO SCH ×2 (08:09→20:21)
[2019-01-17 10:24] LABS: Basophils # (auto) 0.03 K/uL (0-0.2); Basophils % (auto) 0.3 %; Hematocrit (blood only) 27.2 % (37-47); Hemoglobin 8.3 g/dL (12.0-16.0); Immature Granulocytes # (auto) 0.02 K/uL (0.00-0.02); Immature Granulocytes % (auto) 0.2 %; Lymphocytes # (auto) 1.01 K/uL (1.2-3.4); Lymphocytes % (auto) 10.3 %; Mean Corpuscular Hgb Conc 30.5 g/dL (32-36); Mean Corpuscular Volume 94.1 fL (80-100); Mean Platelet Volume 10.5 fL (7.4-10.4); Monocytes # (auto) 0.82 K/uL (0.11-0.59); Monocytes % (auto) 8.4 %; Neutrophils # (auto) 7.79 K/uL (1.4-6.5); Neutrophils % (auto) 79.8 %; Platelet Count 231 K/uL (130-400); RDW Coefficient of Variation 15.7 % (11.5-14.5); RDW Standard Deviation 53.3 fL (36.4-46.3); Red Blood Count 2.89 M/uL (4.2-5.4); White Blood Count 9.77 K/uL (4.8-10.8)
[2019-01-17 10:55] LABS: Folate (Folic Acid) 11.28 ng/ml (>5.38)
--- NOTE | 2019-01-17 14:17 | Hospitalist Progress Note ---
Date of Service January 17, 2019 Assessment & Plan (1) Anemia: Normochromic/normocytic anemia. Hgb dropped from 13 earlier this year to 7.3 today Stool is brown and she denies any rectal bleeding, melena, hematemesis, or hematuria or vaginal bleeding at home. Hemoccult + in the ER. Has been having intermittent epigastric pains and now pain with wearing a bra for 2 months, progressively worsening No dysphagia, no odynophagia. Has had anorexia for several months with a 5 lb weight loss Suspect PUD or gastritis from Aleve use + EtOH, also could have Donny ulcers from large HH CT Chest show large hiatal hernia as well as moderate esophageal debris Patient now agreeable to EGD. She states that if she were to have a cancer, she would not pursue further treatment, but if there was a bleeding ulcer or something that could be intervened upon during an EGD, she would be ok with that. -Continue to monitor CBC. Transfuse if active bleeding, Hg < 7 or symptoms of anemia develop -Will STOP Aleve and instruct patient to avoid all NSAIDS -continue Protonix 40mg po BID -continue Sucralfate TID -plan for GI consult and hopefully EGD tomorrow -NPO after midnight (2) Neck pain: Suspect cervicalgia from arthritis vs musculoskeletal pain from PD. Pain is improved with neck extension and rest. Patient was seen by Ortho and PT/OT was recommended, has MRI C-spine and T- spine upcoming as an outpt CTA neck here with moderate, multilevel degenerative changes -PT/OT evaluation -Strongly encourage continued exercise for strengthening of neck muscles -continue Tylenol 1gm PO TID -Voltaren gel PRN -Would avoid further use of NSAIDS, would try to avoid narcotics due to age -consider trial of RObaxin as muscle relaxer -would benefit from outpt PT or perhaps acupuncture (3) YOSHI (acute kidney injury): Eap Specialist was up to 1.6 from baseline 1.2. Now improved to 1.39, was likely mild dehydration -follow BMP -renally dose meds, avoid nephrotoxins (4) Epigastric pain: as above (5) Hiatal hernia: large, seen on CT Chest (6) Poor appetite: possibly secondary to GI issue as above EGD tomorrow (7) Parkinson disease: Chronic. Symptoms well controlled -Patient to continue Carbidoba/Levodopa at home dose (8) Acute blood loss anemia: drop in hgb from 13 down to 7 as above, with GI bleed (9) Heme positive stool: as above EGD tomorrow (10) DVT prophylaxis: Haylie Dispo-remain overnight for EGD tomorrow, possible dc after that if nothing too serious found on EGD Subjective Pt reports feeling much better today. No further lower chest pain or pain under the ribs since admission and receiving carafate and PPI. She is still haivn neck pain posteriorly that radiates up the back of her head to her forehead that comes on with looking down at something for too long and is relieved with looking upward and lying back/resting her head. Reports taking once to twice daily Aleve for many months now fo rher neck pain. Also then developed lower chest pain that wrapped underneath bilat ribs that felt like a tight band at times. Then for the last week, felt pain even with wearing a bra in that same area. Denies melena or hematochezia, no BRBPR, no hematemesis No hematuria or other bleeding Has lost 5 lbs in the last 4 months and has had a very poor appetite for a few months. Reports she used to have heartburn but does not any more. She always sleeps in a recliner chair. Denies odynophagia or dysphagia, no food gets stuck. No N/V. I discussed the case with GI conveyor operator Initially pt was hesitant to have an EGD, but after discussion of risks/benefits/alternatives, she now would like to proceed with EGD Review of Systems Review of Systems: All systems reviewed & are unremarkable except as noted in HPI & below Physical Exam Constitutional: WD/WN, vitals as above Eyes: PERRL, conjunctivae normal, anicteric sclerae ENMT: external ear and nose normal, oropharynx normal Neck: trachea midline, no thyromegaly Respiratory: normal respiratory effort; no labored breathing Auscultation: + crackles (at bases bilat) Cardiovascular: RRR, no murmur, no edema Gastrointestinal (Abdomen): normal bowel sounds, soft, nontender, no hepatosplenomegaly Musculoskeletal: Head/Neck/Chest: neck supple; full ROM of neck (no TTP over posterior neck and paraspinous muscles) Extremities: extremities normal to inspection; no cyanosis and no clubbing Skin: no rashes, warm and dry Neurologic: moves all extremities and awake; no focal motor deficits Psychiatric: A+Ox3, euthymic affect Results & Data Vital Signs (Past 12 Hours) Vital Signs Temp Pulse Resp BP Pulse Ox 01/17/19 07:39 36.7 C 65 18 100/63 100 Laboratory Results 01/17/19 01/17/19 01/17/19 Range/Units 10:14 10:14 04:51 WBC 9.77 (4.8-10.8) K/uL RBC 2.89 L (4.2-5.4) M/uL Hgb 8.3 L (12.0-16.0) g/dL Hct 27.2 L (37-47) % MCV 94.1 (80-100) fL MCH 28.7 (25-34) pg MCHC 30.5 L (32-36) g/dL RDW Std Deviation 53.3 H (36.4-46.3) fL RDW Coeff of Sancho 15.7 H (11.5-14.5) % Plt Count 231 (130-400) K/uL MPV 10.5 H (7.4-10.4) fL Immature Gran % (Auto) 0.2 % Neut % (Auto) 79.8 % Lymph % (Auto) 10.3 % [place] % (Auto) 8.4 % Eos % (Auto) 1.0 % Baso % (Auto) 0.3 % Immature Gran # (Auto) 0.02 (0.00-0.02) K/uL Neut # (Auto) 7.79 H (1.4-6.5) K/uL Lymph # (Auto) 1.01 L (1.2-3.4) K/uL [place] # (Auto) 0.82 H (0.11-0.59) K/uL Eos # (Auto) 0.10 (0-0.5) K/uL Baso # (Auto) 0.03 (0-0.2) K/uL Giant Platelets Hypochromasia Sodium 137 (136-145) mmol/L Potassium 4.6 (3.5-5.1) mmol/L Chloride 106 (98-107) mmol/L Carbon Dioxide 26 (21-32) mmol/L Anion Gap 5.0 (3-11) BUN 22 H (7-18) mg/dl Creatinine 1.39 H (0.6-1.2) mg/dl Est Cr Clr Drug Dosing 26.4 ml/min Est GFR ( Amer) 42.0 Est GFR (Non-Af Amer) 36.2 BUN/Creatinine Ratio 15.6 (10-20) Glucose 84 (70-99) mg/dl Calcium 8.2 L (8.5-10.1) mg/dl Vitamin B12 321 (211-911) pg/ml Folate 11.28 (>5.38) ng/ml 01/17/19 Range/Units 04:51 WBC 7.85 (4.8-10.8) K/uL RBC 2.55 L (4.2-5.4) M/uL Hgb 7.3 L (12.0-16.0) g/dL Hct 23.6 L (37-47) % MCV 92.5 (80-100) fL MCH 28.6 (25-34) pg MCHC 30.9 L (32-36) g/dL RDW Std Deviation 53.7 H (36.4-46.3) fL RDW Coeff of Sancho 15.7 H (11.5-14.5) % Plt Count 177 (130-400) K/uL MPV 10.7 H (7.4-10.4) fL Immature Gran % (Auto) 0.1 % Neut % (Auto) 74.2 % Lymph % (Auto) 8.5 % [place] % (Auto) 15.2 % Eos % (Auto) 1.7 % Baso % (Auto) 0.3 % Immature Gran # (Auto) 0.01 (0.00-0.02) K/uL Neut # (Auto) 5.83 (1.4-6.5) K/uL Lymph # (Auto) 0.67 L (1.2-3.4) K/uL [place] # (Auto) 1.19 H (0.11-0.59) K/uL Eos # (Auto) 0.13 (0-0.5) K/uL Baso # (Auto) 0.02 (0-0.2) K/uL [place] Plate[place] 1+ Hypochromasia Present Sodium (136-145) mmol/L Potassium (3.5-5.1) mmol/L Chloride (98-107) mmol/L Carbon Dioxide (21-32) mmol/L Anion Gap (3-11) BUN (7-18) mg/dl Creatinine (0.6-1.2) mg/dl Est Cr Clr Drug Dosing ml/min Est GFR ( Amer) Est GFR (Non-Af Amer) BUN/Creatinine Ratio (10-20) Glucose (70-99) mg/dl Calcium (8.5-10.1) mg/dl Vitamin B12 (211-911) pg/ml Folate (>5.38) ng/ml PG Care Time/CCT Total # of Minutes Spent Total Time Spent with Patient: Total time spent is greater than 50% in coordi nation of care (as documented) at patient's floor/unit and/or counseling patient: (1) Anemia Anemia type: unspecified type Qualified Code(s): D64.9 - Anemia, unspecified
--- NOTE | 2019-01-17 15:34 | Gastrointestinal Consultation ---
Date of Consultation January 17, 2019 Assessment & Plan (1) Heme positive stool: For heme pos stool recommend EGD tomorrow to look for PUD as a cause particularly in light of frequent Alleve use. Proc and risks explained which include but not limited to med reaction, bleeding, perforation, and aspiration anemia---could be from slow GI blood loss--EGD as above large HH--EGD as above History of Present Illness Reason for Consultation: heme pos stool, anemia, epi pain Requesting Physician: Neris Becker MD Attending Physician: Neris Becker MD History of Present Illness CC chest discomfort HPI Pt with chest comfort when she looks down or bends doewn. She came to ER for neck pain and shortness of breath. She was noted to have heme pos brown stool and Hgb 7.7 vs 16/07. She denies gross red or black stools. Some epi discomfort. Takes Allever regularly for neck pain. NO EGD nor colonoscopy in the past. No aggressive treatment desired if a cancer is found on endoscopy. CTA of chest neg for PE but large HH noted. Has some anorexia also. Allergies Allergy/AdvReac Type Severity Reaction Status Date / Time No Known Allergies Allergy Mild Unverified 01/16/19 09:16 Home Medications Home Medications Medication Instructions Recorded Confirmed Type carbidopa-levodopa 1 tab PO UD 01/16/19 01/16/19 History naproxen sodium [Aleve] 220 mg PO Q12H PRN 01/16/19 01/16/19 History Patient History Medical History Broken clavicle (Resolved) Arthritis Parkinson disease Surgical History History of cholecystectomy Family History Other Coronary heart disease Social History Preferred Language: Argentine Communication Ability: Effective Beliefs That Will Affect Care: None Current Living Situation: Alone Feels Safe at Home: Yes Smoking Status: Current every day smoker Tobacco Type: cigarettes Second Hand Exposure: No Hx Alcohol Use: Yes Alcohol type: wine Hx Substance Use: No Review of Systems Review of Systems: All systems reviewed & are unremarkable except as noted in HPI & below Physical Exam Constitutional: WD/WN, vitals as above Eyes: PERRL, conjunctivae normal, anicteric sclerae ENMT: external ear and nose normal, oropharynx normal Neck: normal visual inspection and trachea midline Respiratory: normal respiratory effort, lungs clear to auscultation Cardiovascular: RRR, no murmur, no edema Gastrointestinal (Abdomen): pos bs, soft, no guarding nor rebound Neurologic: PERRL, EOMI, accommodation nl, no face palsy, no dysarthria Psychiatric: A+Ox3, euthymic affect Results & Data Vital Signs (Past 12 Hours) Vital Signs Temp Pulse Resp BP Pulse Ox 01/17/19 07:39 36.7 C 65 18 100/63 100
[2019-01-18 05:58] LABS: Basophils # (auto) 0.02 K/uL (0-0.2); Basophils % (auto) 0.4 %; Eosinophils # (auto) 0.21 K/uL (0-0.5); Eosinophils % (auto) 3.7 %; Hematocrit (blood only) 22.8 % (37-47); Immature Granulocytes # (auto) 0.01 K/uL (0.00-0.02); Immature Granulocytes % (auto) 0.2 %; Lymphocytes # (auto) 1.03 K/uL (1.2-3.4); Lymphocytes % (auto) 18.3 %; Mean Corpuscular Hgb Conc 30.7 g/dL (32-36); Mean Corpuscular Volume 93.4 fL (80-100); Mean Platelet Volume 10.7 fL (7.4-10.4); Monocytes # (auto) 0.84 K/uL (0.11-0.59); Monocytes % (auto) 14.9 %; Neutrophils # (auto) 3.53 K/uL (1.4-6.5); Neutrophils % (auto) 62.5 %; Platelet Count 183 K/uL (130-400); RDW Coefficient of Variation 15.6 % (11.5-14.5); RDW Standard Deviation 53.7 fL (36.4-46.3); Red Blood Count 2.44 M/uL (4.2-5.4); White Blood Count 5.64 K/uL (4.8-10.8)
[2019-01-18 06:16] LABS: Partial Thromboplastin Ratio 1.1; Partial Thromboplastin Time 28.6 Seconds (21.0-31.0)
[2019-01-18] MEDS: CARBIDOPA/LEVODOPA 25/100MG TAB PO SCH ×6 (06:24→21:08)
[2019-01-18 06:41] LABS: Alanine Aminotransferase < 6 U/L (12-78); Albumin Level 2.8 gm/dl (3.4-5.0); Aspartate Aminotransferase 9 U/L (15-37); BUN Creatinine Ratio 12.1 (10-20); Blood Urea Nitrogen 21 mg/dl (7-18); Calcium 8.2 mg/dl (8.5-10.1); Carbon Dioxide 26 mmol/L (21-32); Chloride 107 mmol/L (98-107); Creatinine Clr Calc Pharmacy 21.3 ml/min; Est GFR (African American) 32.4; Glucose 100 mg/dl (70-99); Potassium 4.2 mmol/L (3.5-5.1); Sodium 137 mmol/L (136-145)
[2019-01-18 06:44] LABS: Albumin Globulin Ratio 0.8 (0.9-2); Alkaline Phosphatase 90 U/L (45-117); Bilirubin,Total 0.2 mg/dl (0.2-1); Globulin 3.7 gm/dl (2.5-4.0); Total Protein 6.5 gm/dl (6.4-8.2)
[2019-01-18 06:48] LABS: Anisocytosis Present; Hypochromasia Present
[2019-01-18] MEDS: PANTOprazole 40 MG TAB PO SCH ×2 (07:51→20:08)
[2019-01-18] MEDS: ACETAMINOPHEN 500 MG TAB PO SCH ×3 (07:51→20:08)
[2019-01-18] MEDS: SUCRALFATE 1 GM/10 ML UDC PO SCH ×4 (07:51→20:08)
[2019-01-18] MEDS ORDERED: SODIUM CHLORIDE 0.9% 250 ML IV PRN (09:04)
[2019-01-18] MEDS: D5W AND NSS 1,000 ML IV SCH ×2 (09:28→21:07)
--- NOTE | 2019-01-18 14:04 | History & Physical Report ---
Date of Service January 18, 2019 History of Present Illness Chief Complaint: Anemia Primary Care Provider: Marquis Bullock MD For EGD Allergies Allergy/AdvReac Type Severity Reaction Status Date / Time No Known Allergies Allergy Mild Verified 01/18/19 13:51 Home Medications Home Medications Medication Instructions Recorded Confirmed Type carbidopa-levodopa 1 tab PO UD 01/16/19 01/16/19 History naproxen sodium [Aleve] 220 mg PO Q12H PRN 01/16/19 01/16/19 History Past Med/Surg History Medical History Broken clavicle (Resolved) Arthritis Parkinson disease Surgical History History of cholecystectomy Family History Other Coronary heart disease Social History Preferred Language: Ukrainian Communication Ability: Effective [employer] Network Architect Required: No Beliefs That Will Affect Care: None Current Living Situation: Alone Other Information That Helps Us Care for You: No Feels Safe at Home: Yes Safety Concerns: Feels Safe At This Time Smoking Status: Current every day smoker Tobacco Type: cigarettes Do You Dip or Chew Tobacco: No Second Hand Exposure: No Tobacco Cessation Education Requested by Patient: No Hx Alcohol Use: Yes Alcohol type: wine Hx Substance Use: No Physical Exam Constitutional: well developed and well nourished Respiratory: normal respiratory effort Cardiovascular: Rate/Rhythm: regular rate and regular rhythm Gastrointestinal (Abdomen): Percussion/Palpation: abdomen soft Results & Data Vital Signs (Past 12 Hours) Vital Signs Temp Pulse Resp BP Pulse Ox 01/18/19 13:53 36.6 C 52 L 18 153/75 H 100 01/18/19 07:20 36.5 C 55 L 16 150/75 H 100
--- NOTE | 2019-01-18 14:10 | Anesthesiology Consultation ---
Date of Service January 18, 2019 Assessment & Plan Chart Review Chart Review: Acceptable Risk for Surgery ASA ASA3 Proposed Anesthesia Anesthesia Type: MAC Risk / Benefits Reviewed With: PT / POA / Parent / Guardian, Accepts Plan and Informed Consent Obtained History Surgery Operation Date: 01/18/19 09:00 Proposed Procedures p Esophagogastroduodenoscopy Dr So Rizzo Height/Weight Height: 5 ft 2 in Weight: 55.2 kg Allergies Allergy/AdvReac Type Severity Reaction Status Date / Time No Known Allergies Allergy Mild Verified 01/18/19 13:51 Medications Home Medications Medication Instructions Recorded Confirmed Last Taken carbidopa-levodopa 1 tab PO UD 01/16/19 01/16/19 01/16/19 06:00 naproxen sodium [Aleve] 220 mg PO Q12H PRN 01/16/19 01/16/19 01/16/19 06:00 220mg Active Medications Generic Name Dose Route Start Last Admin Trade Name Freq PRN Reason Stop Dose Admin Acetaminophen 1,000 mg 01/16/19 21:00 01/18/19 12:53 Tylenol PO 02/15/19 20:59 Not Given TID RONNY Carbidopa/Levodopa 1 tab 01/16/19 19:00 01/18/19 12:53 Sinemet 25/100 Mg PO 02/15/19 18:59 Not Given [id number] RONNY Diclofenac Sodium 1 appln 01/16/19 17:38 01/16/19 18:20 Voltaren 1% Top EXT 02/15/19 17:59 1 appln Q8H PRN Administration Pain Dextrose/Sodium Chloride 1,000 mls @ 125 mls/hr 01/18/19 09:15 01/18/19 09:28 D5w And Nss IV 02/17/19 09:14 125 mls/hr .Q8H RONNY Administration Ioversol 120 ml 01/16/19 10:14 01/16/19 10:14 Optiray 320 125ml IV 01/20/19 10:13 120 ml ONCE PRN Administration Interaction Checking Pantoprazole Sodium 40 mg 01/16/19 21:00 01/18/19 07:51 Protonix PO 02/15/19 20:59 40 mg BID RONNY Administration Sucralfate 1 gm 01/16/19 17:00 01/18/19 12:31 Carafate PO 02/15/19 16:59 Not Given ACHS RONNY NPO Date Last Intake of Fluids: 01/17/19 Time Last Intake of Fluids: 20:00 Last Intake of Fluids Comment: sip with pills this morning Date Last Intake of Solids: 01/17/19 Time Last Intake of Solids: 20:00 Past Medical History Medical History Broken clavicle (Resolved) Arthritis Parkinson disease Exercise / Class Metabolic Activity III < 4 Walking/Shop/Light housework Past Family History Family History Other Coronary heart disease Past Surgical History Surgical History History of cholecystectomy Past Anesthesia History No Hx of Anesthesia Complications and No Family Hx of Anesthesia Complications History of PONV No Hx of PONV and No Hx of Motion Sickness Social History Smoking Status: Current every day smoker tobacco type: cigarettes Do You Dip or Chew Tobacco: No Hx Alcohol Use: Yes Alcohol type: wine alcohol intake frequency: 0-2 drinks per day Hx Substance Use: No Physical Exam Vital Signs Last Vital Signs Temp 36.6 C 01/18/19 13:53 Pulse 52 L 01/18/19 13:53 Resp 18 01/18/19 13:53 BP 153/75 H 01/18/19 13:53 Pulse Ox 100 01/18/19 13:53 ENMT Mouth: + dentures Neck normal visual inspection and trachea midline Respiratory normal respiratory effort Auscultation: lungs clear to auscultation bilaterally Cardiovascular Rate/Rhythm: regular rate and regular rhythm Psychiatric Orientation: oriented x 3 Testing Laboratory Results 01/18/19 05:33 01/18/19 05:33 PT 10.3 Seconds (9.0-12.0) 01/16/19 09:20 INR 1.0 (0.9-1.1) 01/16/19 09:20 APTT 28.6 Seconds (21.0-31.0) 01/18/19 05:33 Urine Color Yellow 01/16/19 11:25 Urine Appearance Clear (Clear) 01/16/19 11:25 Urine pH 6.5 (4.5-7.5) 01/16/19 11:25 Ur Specific [place] 1.022 (1.000-1.030) 01/16/19 11:25 Urine Protein Negative (Negative) 01/16/19 11:25 Urine Glucose (UA) Negative (Negative) 01/16/19 11:25 Urine Ketones Negative (Negative) 01/16/19 11:25 Urine Nitrite Negative (Negative) 01/16/19 11:25 Ur Leukocyte Esterase Negative (Negative) 01/16/19 11:25 Blood Type A Positive 01/18/19 09:10 Antibody Screen NEGATIVE 01/18/19 09:10
[2019-01-18] MEDS ORDERED: SODIUM CHLORIDE 0.9% 1000ML 1,000 ML IV SCH (14:15)
[2019-01-18] MEDS ORDERED: PROPOFOL IV EMULSION 10 MG/ML 20 ML VIAL IV ONE (14:27)
[2019-01-18] MEDS ORDERED: LIDOCAINE HCL 2% 2 ML VIAL/AMP(20MG/ML) INFIL ONE (14:27)
--- NOTE | 2019-01-18 14:56 | GI REPORT ---
Patient Name: Phoebe Bernal Procedure Date: 01/18/2019 2:30 PM Date of : 1940 Admit Type: Inpatient Age: 78 Gender: Female Attending MD: Lonnie Rizzo MD Procedure: Upper GI endoscopy Providers: Lonnie Rizzo MD Referring MD: Neris Becker Md Indications: Acute post hemorrhagic anemia Medicines: Propofol total dose 140 mg IV, Lidocaine 80 mg IV Complications: No immediate complications. Estimated Blood Loss: Estimated blood loss was minimal. Procedure: Pre-Anesthesia Assessment: - Prior to the procedure, a History and Physical was performed, and patient medications, allergies and sensitivities were reviewed. The patient's tolerance of previous anesthesia was reviewed. - The risks and benefits of the procedure and the sedation options and risks were discussed with the patient. All questions were answered and informed consent was obtained. After obtaining informed consent, the endoscope was passed under direct vision. Throughout the procedure, the patient's blood pressure, pulse, and oxygen saturations were monitored continuously. The Endoscope was introduced through the mouth, and advanced to the second part of duodenum. The upper GI endoscopy was accomplished without difficulty. The patient tolerated the procedure well. Findings: The Z-line was variable and was found 30 cm from the incisors. Two cratered esophageal ulcers with no bleeding and no stigmata of recent bleeding were found 30 cm from the incisors. The largest lesion was 15 mm in largest dimension. Biopsies were taken with a cold forceps for histology. Cells for cytology were obtained by brushing. Estimated blood loss was minimal. Three non-bleeding superficial gastric ulcers with no stigmata of bleeding were found in the gastric antrum. The largest lesion was 5 mm in largest dimension. The examined duodenum was normal. Impression: - Z-line variable, 30 cm from the incisors. - Non-bleeding esophageal ulcers. Biopsied. Cells for cytology obtained. - Non-bleeding gastric ulcers with no stigmata of bleeding. - Normal examined duodenum. Recommendation: - Return patient to [facility] for ongoing care. - Await pathology results. Lonnie Rizzo M.D. Lonnie Rizzo MD 01/18/2019 2:56:33 PM This report has been signed electronically. Note Initiated On: 01/18/2019 2:30 PM Number of Addenda: 0 I attest to the content of the Intraoperative Record and orders documented therein, exceptions below {[id number]}
--- NOTE | 2019-01-18 15:21 | Anesthesiology Progress Note ---
Date of Service January 18, 2019 Anesthesia Post Procedure Vital Signs Vital Signs: Temp Pulse Resp BP BP Pulse Ox 01/18/19 15:12 57 L 16 159/81 H 100 01/18/19 14:57 60 18 140/87 99 01/18/19 13:53 36.6 C 52 L 18 153/75 H 100 01/18/19 07:20 36.5 C 55 L 16 150/75 H 100 01/17/19 23:00 36.6 C 64 20 115/69 99 Transfer of Care Handoff Completed per policy Notes Mental Status: alert / awake / arousable and participated in evaluation Nausea / Vomiting: adequately controlled Pain: adequately controlled Airway Patency, RR, SpO2: stable & adequate BP & HR: stable & adequate Hydration State: stable & adequate Anesthetic Complications: no major complications apparent and Pt Satisfied with anesthetic care
--- NOTE | 2019-01-18 15:41 | Progress Note ---
DATE: 01/18/2019 The patient underwent an EGD today for her blood loss anemia. The patient's endoscopy showed 2 large deep ulcers at the GE junction. There was a lot of surrounding edema. These ulcers were biopsied and brushed for cytology. In the antrum of the stomach, there was also some superficial linear ulcers. These numbered about 3 in total. These were not a source of blood loss. The duodenum was normal. IMPRESSION: The patient has large deep distal esophageal ulcers. Biopsies and cytologies are pending. It is possible that these could be related to medication from local ulceration or these could be an ulcerating tumor, we will have to wait for the pathology to return. In the meantime, the patient should remain on acid reducing medications and a bland diet.
[2019-01-18 16:45] LABS: Hematocrit (blood only) 27.3 % (37-47); Hemoglobin 8.2 g/dL (12.0-16.0); Mean Corpuscular Volume 92.5 fL (80-100); Mean Platelet Volume 10.6 fL (7.4-10.4); Platelet Count 224 K/uL (130-400); RDW Coefficient of Variation 15.6 % (11.5-14.5); RDW Standard Deviation 53.3 fL (36.4-46.3); Red Blood Count 2.95 M/uL (4.2-5.4); White Blood Count 6.07 K/uL (4.8-10.8)
[2019-01-18 17:12] LABS: BUN Creatinine Ratio 11.3 (10-20); Calcium 8.9 mg/dl (8.5-10.1); Creatinine Clr Calc Pharmacy 23.5 ml/min; Est GFR (African American) 36.5; Est GFR (Non-African American) 31.5; Potassium 3.9 mmol/L (3.5-5.1)
--- NOTE | 2019-01-18 19:39 | Hospitalist Progress Note ---
Date of Service January 18, 2019 Assessment & Plan (1) Anemia: Normochromic/normocytic anemia. Hgb dropped from 13 earlier this year to 7.3 after admission, now down to 7.0 but no gross bleeding Stool is brown and she denies any rectal bleeding, melena, hematemesis, or hematuria or vaginal bleeding at home. Hemoccult + in the ER. Has been having intermittent epigastric pains and now pain with wearing a bra for 2 months, progressively worsening No dysphagia, no odynophagia. Has had anorexia for several months with a 5 lb weight loss Has had frequent Aleve use and has large HH CT Chest show large hiatal hernia as well as moderate esophageal debris Patient now agreeable to EGD. EGD showed cratered large ulcers distal esophagus and gastric ulcer, none actively bleeding. Biopsy taken of cratered ulcer as could be cancerous She states that if she were to have a cancer, she would not pursue further treatment -Continue to monitor CBC. Transfuse if active bleeding, Hg < 7 or symptoms of anemia develop is recommended however pt is refusing transfusion -would place on po FeSO4 at discharge -observe overnight and if tolerating diet, can dc tomorrow -Will STOP Aleve and instruct patient to avoid all NSAIDS -continue Protonix 40mg po BID -continue Sucralfate bid -APpreciate GI consult -eat soft, bland diet -will need f/u on biopsies after discharge (2) Neck pain: Suspect cervicalgia from arthritis vs musculoskeletal pain from PD. Pain is improved with neck extension and rest. 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 Then improved to 1.39, but now back u p to 1.7 -follow BMP again this evening -renally dose meds, avoid nephrotoxins -give D5NS x 1 L (4) Epigastric pain: as above , secondary to esophageal ulcers, now improving (5) Hiatal hernia: large, seen on CT Chest (6) Poor appetite: possibly secondary to GI issue as above (7) Parkinson disease: Chronic. Symptoms well controlled -Patient to continue Carbidoba/Levodopa at home dose (8) Acute blood loss anemia: drop in hgb from 13 down to 7 as above, with GI bleed (9) Heme positive stool: as above from ulcers, no longer bleeding (10) DVT prophylaxis: TEDs Dispo-remain overnight and if tolerating diet, dc to home tomorrow Subjective Pt denies any pain, neck and chest/epigastric is improved. Denies any blood in BM or melena. Had EGD today and showed large cratered esophageal ulcers and gastric ulcer, no active bleeding. Denies lightheadedness. Says she will not have a blood transfusion as she chooses to eat iron-rich foods. SHe says even if her Hgb is < 7, as long as she feels fine, she won't take a transfusion. Not SOB Review of Systems Review of Systems: All systems reviewed & are unremarkable except as noted in HPI & below Physical Exam Constitutional: WD/WN, vitals as above Eyes: PERRL, conjunctivae normal, anicteric sclerae ENMT: external ear and nose normal, oropharynx normal Neck: trachea midline, no thyromegaly Respiratory: normal respiratory effort, lungs clear to auscultation normal respiratory effort; no labored breathing Cardiovascular: RRR, no murmur, no edema Gastrointestinal (Abdomen): normal bowel sounds, soft, nontender, no hepatosplenomegaly Musculoskeletal: Head/Neck/Chest: neck supple; full ROM of neck (no TTP over posterior neck and paraspinous muscles) Extremities: extremities normal to inspection; no cyanosis and no clubbing Skin: no rashes, warm and dry Neurologic: moves all extremities and awake; no focal motor deficits Psychiatric: A+Ox3, euthymic affect Results & Data Vital Signs (Past 12 Hours) Vital Signs Temp Pulse Resp BP BP Pulse Ox 01/18/19 16:00 36.3 C L 55 L 18 166/82 H 100 01/18/19 15:27 57 L 16 158/74 H 99 01/18/19 15:12 57 L 16 159/81 H 100 01/18/19 14:57 60 18 140/87 99 01/18/19 13:53 36.6 C 52 L 18 153/75 H 100 Laboratory Results 01/19/19 01/19/19 01/18/19 Range/Units 05:40 05:40 16:29 WBC 3.65 L 6.07 (4.8-10.8) K/uL RBC 2.41 L 2.95 L (4.2-5.4) M/uL Hgb 6.8 L* 8.2 L (12.0-16.0) g/dL Hct 22.7 L 27.3 L (37-47) % MCV 94.2 92.5 (80-100) fL MCH 28.2 27.8 (25-34) pg MCHC 30.0 L 30.0 L (32-36) g/dL RDW Std Deviation 53.3 H 53.3 H (36.4-46.3) fL RDW Coeff of Sancho 15.5 H 15.6 H (11.5-14.5) % Plt Count 170 224 (130-400) K/uL MPV 10.5 H 10.6 H (7.4-10.4) fL Immature Gran % (Auto) 0.3 % Neut % (Auto) 49.4 % Lymph % (Auto) 31.2 % [place] % (Auto) 13.7 % Eos % (Auto) 4.9 % Baso % (Auto) 0.5 % Immature Gran # (Auto) 0.01 (0.00-0.02) K/uL Neut # (Auto) 1.80 (1.4-6.5) K/uL Lymph # (Auto) 1.14 L (1.2-3.4) K/uL [place] # (Auto) 0.50 (0.11-0.59) K/uL Eos # (Auto) 0.18 (0-0.5) K/uL Baso # (Auto) 0.02 (0-0.2) K/uL Giant Platelets 2+ Sodium 142 (136-145) mmol/L Potassium 4.1 (3.5-5.1) mmol/L Chloride 113 H (98-107) mmol/L Carbon Dioxide 24 (21-32) mmol/L Anion Gap 5.0 (3-11) BUN 18 (7-18) mg/dl Creatinine 1.45 H (0.6-1.2) mg/dl Est Cr Clr Drug Dosing 25.3 ml/min Est GFR ( Amer) 39.9 Est GFR (Non-Af Amer) 34.4 BUN/Creatinine Ratio 12.3 (10-20) Glucose 93 (70-99) mg/dl Calcium 7.9 L (8.5-10.1) mg/dl Blood Type Blood Type Recheck Antibody Screen Crossmatch 01/18/19 01/18/19 01/17/19 Range/Units 16:29 09:10 10:14 WBC (4.8-10.8) K/uL RBC (4.2-5.4) M/uL Hgb (12.0-16.0) g/dL Hct (37-47) % MCV (80-100) fL MCH (25-34) pg MCHC (32-36) g/dL RDW Std Deviation (36.4-46.3) fL RDW Coeff of Sancho (11.5-14.5) % Plt Count (130-400) K/uL MPV (7.4-10.4) fL Immature Gran % (Auto) % Neut % (Auto) % Lymph % (Auto) % [place] % (Auto) % Eos % (Auto) % Baso % (Auto) % Immature Gran # (Auto) (0.00-0.02) K/uL Neut # (Auto) (1.4-6.5) K/uL Lymph # (Auto) (1.2-3.4) K/uL [place] # (Auto) (0.11-0.59) K/uL Eos # (Auto) (0-0.5) K/uL Baso # (Auto) (0-0.2) K/uL Giant Platelets Sodium 139 (136-145) mmol/L Potassium 3.9 (3.5-5.1) mmol/L Chloride 110 H (98-107) mmol/L Carbon Dioxide 22 (21-32) mmol/L Anion Gap 7.0 (3-11) BUN 18 (7-18) mg/dl Creatinine 1.56 H (0.6-1.2) mg/dl Est Cr Clr Drug Dosing 23.5 ml/min Est GFR ( Amer) 36.5 Est GFR (Non-Af Amer) 31.5 BUN/Creatinine Ratio 11.3 (10-20) Glucose 92 (70-99) mg/dl Calcium 8.9 (8.5-10.1) mg/dl Blood Type A Positive Blood Type Recheck A Positive Antibody Screen NEGATIVE Crossmatch See Detail PG Care Time/CCT Total # of Minutes Spent Total Time Spent with Patient: Total time spent is greater than 50% in coordination of care (as documented) at patient's floor/unit and/or counseling patient: (1) Anemia Anemia type: unspecified type Qualified Code(s): D64.9 - Anemia, unspecified
[2019-01-18] MEDS ORDERED: CYANOCOBALAMIN (VITAMIN B-12) 100 MCG TABLET PO SCH (21:00)
[2019-01-19 06:16] LABS: Hematocrit (blood only) 22.7 % (37-47); Hemoglobin 6.8 g/dL (12.0-16.0); Mean Corpuscular Volume 94.2 fL (80-100); Mean Platelet Volume 10.5 fL (7.4-10.4); Platelet Count 170 K/uL (130-400); RDW Coefficient of Variation 15.5 % (11.5-14.5); RDW Standard Deviation 53.3 fL (36.4-46.3); Red Blood Count 2.41 M/uL (4.2-5.4); White Blood Count 3.65 K/uL (4.8-10.8)
[2019-01-19] MEDS: CARBIDOPA/LEVODOPA 25/100MG TAB PO SCH ×3 (06:32→12:33)
[2019-01-19 06:46] LABS: Basophils # (auto) 0.02 K/uL (0-0.2); Basophils % (auto) 0.5 %; Eosinophils # (auto) 0.18 K/uL (0-0.5); Eosinophils % (auto) 4.9 %; Giant Platelets 2+; Immature Granulocytes # (auto) 0.01 K/uL (0.00-0.02); Immature Granulocytes % (auto) 0.3 %; Lymphocytes # (auto) 1.14 K/uL (1.2-3.4); Lymphocytes % (auto) 31.2 %; Monocytes % (auto) 13.7 %; Neutrophils % (auto) 49.4 %
[2019-01-19 06:49] LABS: BUN Creatinine Ratio 12.3 (10-20); Calcium 7.9 mg/dl (8.5-10.1); Creatinine Clr Calc Pharmacy 25.3 ml/min; Est GFR (African American) 39.9; Est GFR (Non-African American) 34.4; Potassium 4.1 mmol/L (3.5-5.1)
[2019-01-19] MEDS: ACETAMINOPHEN 500 MG TAB PO SCH ×2 (07:46→14:48)
[2019-01-19] MEDS: SUCRALFATE 1 GM/10 ML UDC PO SCH ×2 (07:47→12:33)
[2019-01-19] MEDS: PANTOprazole 40 MG TAB PO SCH (07:47)
[2019-01-19] MEDS: D5W AND NSS 1,000 ML IV SCH (07:49)
--- NOTE | 2019-01-19 09:24 | Anesthesiology Progress Note ---
Date of Service January 19, 2019 Anesthesia Post Procedure Vital Signs Vital Signs: Temp Pulse Resp BP BP Pulse Ox 01/19/19 07:36 36.5 C 67 18 149/80 H 99 01/18/19 23:27 36.4 C L 69 20 145/74 H 100 01/18/19 16:00 36.3 C L 55 L 18 166/82 H 100 01/18/19 15:27 57 L 16 158/74 H 99 01/18/19 15:12 57 L 16 159/81 H 100 01/18/19 14:57 60 18 140/87 99 01/18/19 13:53 36.6 C 52 L 18 153/75 H 100
[2019-01-19 11:54] LABS: Hematocrit (blood only) 25.3 % (37-47); Hemoglobin 7.5 g/dL (12.0-16.0)
--- NOTE | 2019-01-19 15:03 | Discharge Summary ---
Date of Service January 19, 2019 Admission HPI Per Admitting Provider Chief Complaint: pain in neck Primary Care Provider: Marquis Bullock MD Phoebe Bernal is a pleasant 78yo C female with history of arthritis, early PD on Carbidopa/Levodopa presenting with neck pain. She states that her symptoms began approximately 4 months ago and have been slowly progressing since. She describes pain in the back of her neck which radiates to the front of her head and bandlike across her chest and into her back which occurs only with looking down. Pain is 8/10 in severity. Resolves with rest. She denies numbness/tingling/weakness or loss of function in her hands. Denies dizziness/syncope/falls/visual changes. She was evaluated by She states her head also "gets stuck" in the downward position sometimes due to pain. Pain may also come depending on her sleeping position. Patient reports seeing an Ortho/Spine surgeon last week and had MRI performed but has not yet received the results of that study. She was referred to physical therapy. She is to followup with Ortho on 02/08/19 Patient presents today at the behest of her sister who is concerned about her symptoms. ER workup reveals H/H of 7.7 and 25.5 which is down from 13.1 and 39.1, respectively in August 2018. She states that she has been taking Aleve fairly regularly over the last 4 months. She was using 1 tablet daily initially but has recently been taking it BID. She has improvement in pain with Aleve. She denies CP/SOB/lightheadedness or dizziness. She denies melena/hematochezia/hematemesis/CGE. She has some mild epigastric tenderness. Stool + for FOBT in the ER. No prior EGD/Ramsay. Patient does not wish to pursue additional workup. Principal Diagnosis Acute blood loss anemia, GI Bleeding, Esophageal ulcers Discharge Exam Constitutional WD/WN, vitals as above Eyes PERRL, conjunctivae normal, anicteric sclerae ENMT external ear and nose normal, oropharynx normal Neck trachea midline, no thyromegaly Respiratory normal respiratory effort, lungs clear to auscultation normal respiratory effort; no labored breathing Cardiovascular RRR, no murmur, no edema Gastrointestinal (Abdomen) normal bowel sounds, soft, nontender, no hepatosplenomegaly Musculoskeletal Head/Neck/Chest: neck supple Extremities: extremities normal to inspection; no cyanosis and no clubbing Skin no rashes, warm and dry Neurologic moves all extremities and awake; no focal motor deficits Psychiatric A+Ox3, euthymic affect Discharge Data Allergies Allergy/AdvReac Type Severity Reaction Status Date / Time No Known Allergies Allergy Mild Verified 01/18/19 13:51 Consultations 01/16/19 12:17 ED Decision to Admit Stat 01/17/19 14:11 Consult Gastroenterology Routine Procedures Performed Operation Date: 01/18/19 09:00 Actual Procedures p EGD Biopsy Cytology - Lonnie Rizzo Ordered Studies 01/16/19 09:14 CT angio chest PE protocol Stat CT angio neck with con Stat CXR Hospital Course (1) Anemia: Normochromic/normocytic anemia. Hgb dropped from 13 earlier this year to 7.3 after admission, then down to 6.8 but no gross bleeding. Some may have been hemodilutional from IVFs Stool is brown and she denies any rectal bleeding, melena, hematemesis, or hematuria or vaginal bleeding at home. Hemoccult + in the ER. Has been having intermittent epigastric pains and now pain with wearing a bra for 2 months, progressively worsening No dysphagia, no odynophagia. Has had anorexia for several months with a 5 lb weight loss Has had frequent Aleve use and has large HH CT Chest show large hiatal hernia as well as moderate esophageal debris Patient was then agreeable to EGD. EGD showed cratered large ulcers distal esophagus and gastric ulcer, none ac tively bleeding. Biopsy taken of cratered ulcer as could be cancerous She states that if she were to have a cancer, she would not pursue further treatment -Continue to monitor CBC as an outpt in 1 week -pt refused PRBC transfusion--> repeat hgb on day of dc was up to 7.5. -will place on po FeSO4 at discharge -is tolerating soft, bland diet and should remain on this for several weeks -Will STOP Aleve and instruct patient to avoid all NSAIDS and ASA -continue Protonix 40mg po BID -continue Sucralfate bid -APpreciate GI consult-will schedule f/u appt within 1-2 months -will need f/u on biopsies after discharge (2) Neck pain: Suspect cervicalgia from arthritis vs musculoskeletal pain from PD. Pain is improved with neck extension and rest. Patient was seen by Ortho and PT/OT was recommended, has MRI C-spine and T- spine upcoming as an outpt CTA neck here with moderate, multilevel degenerative changes -PT/OT evaluation -Strongly encourage continued exercise for strengthening of neck muscles -continue Tylenol 1gm PO TID prn -Voltaren gel PRN -Would avoid further use of NSAIDS, would try to avoid narcotics due to age -would benefit from outpt PT or perhaps acupuncture (3) YOSHI (acute kidney injury): [employer]working [employer] was up to 1.6 from baseline 1.2. Then improved to 1.39, then back u p to 1.7 and now back down w/ OVFs to 1.45 Likely has CKD Stage III -follow BMP in 1 week as outpt, Rx given for labs -renally dose meds, avoid nephrotoxins (4) Epigastric pain: as above , secondary to esophageal ulcers, now reoslved (5) Hiatal hernia: large, seen on CT Chest Nothing to do except may need to remain on PPI indefinitely (6) Poor appetite: possibly secondary to GI issue as above (7) Parkinson disease: Chronic. Symptoms well controlled -Patient to continue Carbidoba/Levodopa at home dose (8) Acute blood loss anemia: drop in hgb from 13 down to 7 as above, with GI bleed (9) Heme positive stool: as above from ulcers, no longer bleeding (10) DVT prophylaxis: TEDs Dispo-stable for dc to home Total Time Total Time Spent Total Time Spent (In Minutes): >30 min Total Time Includes: Examination of the Patient, Discharge Planning and Medication Reconciliation Discharge Plan Discharge Items Patient Disposition: Home - Self-Care Reason For Visit: NECK PAIN,ANEMIA Discharge Diagnosis: Anemia, GI Bleeding, esophageal ulcers Condition: Good Discharge Goals: Decrease discomfort, Diagnostic testing, Improve disease control, Learn about illness and Therapeutic intervention Activity: Resume your previous activity Lifting: Gradually increase as tolerated Bathing: No limitations Exercise/Sports: Gradually increase as tolerated Driving/Machine Use: No limitations Non-emergency contact: Primary Care Provider and Overnight Houseperson Call non-emergency contact if: you have any medication questions and your symptoms worsen Follow-up/Referrals: Marquis Bullock III, MD [Primary Care Provider] - 01/26/19 11:00 am (Please, follow up at Dr. Bullock's office with his human services assistant, Jocelyne Burgos, on TuesdayJanuary 26 at 11:00 am. *If you need to change this appointment, call the office at [phone].) Lonnie Rizzo [Physician] - 03/14/19 10:20 am (Please, follow up at [facility] with Dr. Rizzo on TuesdayMarch 14 at 10:20 am. *The office is located at [address] [place] [address] - next to [facility]. If you need to change this appointment, call the office at [phone].) Diet: Regular Diet Texture: Dental soft (bite-sized) Diet Comment: [place], soft diet x 2-3 weeks Other Ambulatory Orders: Basic Metabolic Panel (Routine) Timeframe: 1 Week Location: Determined by Patient Ordered By: Neris Becker Complete Blood Count with Diff (Routine) Timeframe: 1 Week Location: Determined by Patient Ordered By: Neris Becker Addtl Provider Instructions: You were admitted with neck pain and severe anemia with chest pain which was found to be secondary to esophageal and stomach ulcers. The ulcers are no longer bleeding. You should take the carafate and protonix twice daily x 2 months to treat the ulcers. Please take an iron table twice daily x 1 month and have your blood count checked in 1 week to make sure your anemia is improving. If you develop bloody stools, black stools, nausea or vomiting, chest pains, shortness of breath, lightheadedness or dizziness, please go to the hospital immediately. Your ulcers are likely secondary to taking Aleve (NSAIDs). Please refrain from taking any NSAIDs (Aleve,naproxen, Motrin, Advil) or any aspirin-containing products. You can safely take Tylenol (acetaminophen) for your neck pain and you can get a referral from your PCP for physical therapy for your neck. Please follow up with your PCP and GI as scheduled for you. Prescriptions: New acetaminophen [Tylenol Extra Strength] 500 mg Tablet 1,000 mg PO TID PRN (Reason: pain) Qty: 60 RF: 0 diclofenac sodium [Voltaren] 1 % Gel 1 gm EXT Q8H PRN (Reason: pain) Qty: 100 RF: 0 sucralfate 100 mg/mL Suspension 1 gm PO BID Qty: 420 RF: 1 pantoprazole 40 mg Tablet,Delayed Release (Dr/Ec) 40 mg PO BID Qty: 60 RF: 0 cyanocobalamin (vitamin B-12) 100 mcg Tablet 100 mcg PO QAM Qty: 30 RF: 0 Continued carbidopa-levodopa 25-100 mg tablet 1 tab PO UD RF: 0 Discontinued naproxen sodium [Aleve] 220 mg Tablet 220 mg PO Q12H PRN (Reason: Pain) RF: 0 Stand-Alone Forms: Replaced By [facility] Discharge Orders: Discharge Order (Routine); Ordered 01/19/19 Ordered By: Neris Becker Admission Data Admit Date/Time: 01/17/19 23:24 Attending Provider: Neris Becker Admit Provider: Sanaz Solano Primary Care Provider: Marquis Bullock III Other Providers: Sanaz Solano ; Lonnie Rizzo Service: Medical Other Interventions: Discharge Summary Assessment (RN) Last Done: 01/18/19 15:08 Pending Studies at Discharge: Yes (Biopsy from EGD)
== END 2019-01-19 15:47 | disposition home or self-care (01) | DRG 381 ==
LOC: 4W 08:39 → ED 08:39 → SUATTDRO 14:20 → 4W 16:00